=== PATIENT | male | born 1995 | race Caucasian/White ===

== ENCOUNTER 2022-05-15 22:34 | Emergency (ER) | payer BC ==
[2022-05-15] MEDS ORDERED: Amoxicillin/Clavulanate K 875-125 MG Tab PO ONE (23:10)
[2022-05-15] MEDS ORDERED: Bacitracin Oint 1 GM U/D Packet TOP ONE (23:10)
[2022-05-15] MEDS ORDERED: Diphtheria,Pertussis(Acell),Tetanus Vaccine 0.5 ML Syringe IM ONE (23:31)
== END 2022-05-16 01:17 | disposition home or self-care (01) ==
LOC: FB.ED 22:34
DX: S50.872A Other superficial bite of left forearm, initial encounter (principal); S60.473A Other superficial bite of left middle finger, initial encounter; R07.81 Pleurodynia; Z23 Encounter for immunization; Y04.1XXA Assault by human bite, initial encounter
CPT/HCPCS: 71101; 90471; 90715; 99283; A9270